=== PATIENT | male | born 1985 | race Caucasian/White ===

== ENCOUNTER 2018-06-29 16:46 | Emergency (ER) | payer OTHER ==
[~2018-06-29] VITALS: Ht 177.8 cm; Wt 122.7 kg
[2018-06-29 18:21] VITALS: BP 167/93
== END 2018-06-29 18:22 | disposition home or self-care (01) ==
LOC: ED 16:46
DX: S01.111A Laceration without foreign body of right eyelid and periocular area, initial encounter (principal); Z23 Encounter for immunization; F17.210 Nicotine dependence, cigarettes, uncomplicated; V48.4XXA Person boarding or alighting a car injured in noncollision transport accident, initial encounter; Y92.481 Parking lot as the place of occurrence of the external cause; Y99.0 Civilian activity done for income or pay
CPT/HCPCS: 90715

== ENCOUNTER 2018-07-07 12:17 | Emergency (ER) | payer OTHER ==
[2018-07-07 12:28] VITALS: BP 159/97
== END 2018-07-07 12:26 | disposition home or self-care (01) ==
LOC: ED 12:17
DX: S05.31XD Ocular laceration without prolapse or loss of intraocular tissue, right eye, subsequent encounter (principal)